=== PATIENT | male | born 1955 | race Caucasian/White ===

== ENCOUNTER 2016-08-28 19:37 | Emergency (ER) | payer OTHER ==
[2016-08-28] MEDS ORDERED: PROPARACAINE 0.5% 15 ML OPHT DROP OP ONE (19:45)
[2016-08-28] MEDS ORDERED: FLUORESCEIN SODIUM 1 MG STRIP OP ONE (19:51)
[2016-08-28 19:52] VITALS: BP 138/85; PULSE 66; RESP 16; TEMP 97.9; O2SAT 94
--- NOTE | 2016-08-28 20:17 | EDPHY ---
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 The incident occurred at 9:00 a.m. and he has had worsening pain since the initial injury 8/ 10 intensity. He notes no exacerbating factors except for minimal relief from ibuprofen-600 mg he took shortly prior to arrival. ROS: HEENT: He notes some vision loss the affected eye. He also notes some eyelid swelling on the right side to the upper eyelid. He has a sensation of foreign body to the eye. No floaters or flashes in his visual field since the incident Integumentary: No other skin lesions/injuries 5 point ROS is otherwise negative. Smoking Status: Never smoked Physical Exam: Physical Exam Vital signs are normal. General: No acute distress HEENT: Atraumatic except for right eyelid swelling-mild with erythema and superficial abrasion. No warmth to touch. No full-thickness lacerations. Eyes : Pupils equal and react to light. Extraocular motions are intact. There is conjunctival injection of the right eye. After proparacaine anesthesia a performed slit-lamp exam everting upper and lower eyelids with no foreign body present. The patient has a corneal abrasion visualized with fluorescein dye extending from near the center of the visual axis down toward 5 o'clock and appears to be approximately 6 mm long. This is a deep abrasion/superficial laceration but is not full-thickness. The globe appears intact with no hyphema and no distortion of the round people on the affected side which is symmetric with the on injured eye. I appreciate no retinal injury and funduscopic exam Cardiac: Brisk capillary refill is intact throughout. Skin: No rash or pallor. Neuro: Alert and oriented x3 with no sensorimotor deficits. Constitutional: Initial Vital Signs Temperature (C) 36.6 C 08/28/16 19:49 Heart Rate 66 08/28/16 19:49 Respiratory Rate 16 08/28/16 19:49 Blood Pressure 138/85 H 08/28/16 19:49 O2 Sat (%) 94 08/28/16 19:49 O2 Delivery Mode Room Air Allergies/Adverse Reactions: No Known Allergies Allergy (Unverified 08/28/16 19:48) Home Medications: Medication Instructions Recorded Erythromycin 0.5% 1 francoise BID #1 opht.oint 08/28/16 Gatifloxacin 0.5% [Zymaxid 0.5%] 2 drop OP QID #1 opht.btl 08/28/16 Ibuprofen [Motrin (*)] 600 mg PO Q6 PRN #30 tab 08/28/16 MDM/Departure - MDM Medications Given: Discontinued Medications Proparacaine HCl (Alcaine 0.5%) 1 drops OP EDNOW ONE Stop: 08/28/16 19:46 Last Admin: 08/28/16 19:53 Dose: 1 drop ED Course/Re-evaluation: Patient with eyelid abrasion and possible mild wound infection/localized cellulitis and a corneal injury. No evidence of globe rupture, significant orbital cellulitis. I think that his visual loss the affected eye is due to the corneal edema associated with injury near the central visual axis. Due to the location, edema and associated visual loss or recommended close follow-up with Ophthalmology. - Depart Disposition: Home, Routine, Self-Care Clinical Impression: Vision loss of right eye Corneal abrasion Qualifiers: Encounter type: initial encounter Laterality: right Qualified Code(s): S05.01XA - Injury of conjunctiva and corneal abrasion without foreign body, right eye, initial encounter Eyelid abrasion Qualifiers: Encounter type: initial encounter Laterality: right Qualified Code(s): S00.211A - Abrasion of right eyelid and periocular area, initial encounter Condition: Good Instructions: Corneal Abrasion (ED) Additional Instructions: Diagnoses: 1. Corneal abrasion 2. Eyelid abrasion 3. Vision loss Plan: Gatifloxacin eyedrops as prescribed to the affected diet Erythromycin ointment to the eyelid Ibuprofen-600 mg per 6 hours as needed for pain Tylenol in addition as needed 650-1000 mg per 6 hours as needed No work for the next 3 days. Return for any significant worsening despite the treatment plan Follow up with Dr. Higginbotham-clinical support specialist for recheck in 2-3 days. You should have a follow up with the clinical support specialist due to the vision loss associated with this. The abrasion is near the center of your visual axis is is causing swelling to the cornea. Also, call the work comp clinic to arrange follow-up appointment at the work comp clinic Stand Alone Forms: Work Excuse Prescriptions: Erythromycin 0.5% 1 francoise BID #1 opht.oint Gatifloxacin 0.5% [Zymaxid 0.5%] 2 drop OP QID #1 opht.btl Ibuprofen [Motrin (*)] 600 mg PO Q6 PRN #30 tab PRN Reason: Pain Referrals: NONE *PRIMARY CARE P,. [Primary Care Provider] - As per Instructions Yovany Higginbotham MD [Medical Doctor] - As per Instructions
== END 2016-08-28 20:24 | disposition home or self-care (01) ==
LOC: CED 19:37
DX: S05.01XA Injury of conjunctiva and corneal abrasion without foreign body, right eye, initial encounter (principal); H54.61 Unqualified visual loss, right eye, normal vision left eye; W45.8XXA Other foreign body or object entering through skin, initial encounter; Y92.69 Other specified industrial and construction area as the place of occurrence of the external cause; Y99.0 Civilian activity done for income or pay; Y93.89 Activity, other specified